=== PATIENT | male | born 1990 | race Caucasian/White ===

== ENCOUNTER 2018-07-18 02:05 | Emergency (ER) | payer BC ==
[2018-07-18] MEDS ORDERED: Ibuprofen 600 MG Tab PO ONE (02:23)
--- NOTE | 2018-07-18 02:29 | EDM.PDOC ---
ED HPI GENERAL MEDICAL PROBLEM - General Chief Complaint: Upper Extremity Injury/Pain Stated Complaint: RASH,FEVER Time Seen by Provider: 07/18/18 02:10 Source of Information: Reports: Patient, Family History Limitations: Reports: No Limitations - History of Present Illness INITIAL COMMENTS - FREE TEXT/NARRATIVE: Ramez comes into [facility] ED with a 24 hr hx of fevers, malaise, and more recent sore throat. There is no cough, nasal congestion, muscles aches or headache. In addition, he struck his L elbow last week and developed a swelling overlying the olecranon that has since subsided but discolored the proximal forearm, significance unknown. left forearm Pain Score (Numeric/FACES): 5 - Related Data Allergies Allergy/AdvReac Type Severity Reaction Status Date / Time No Known Allergies Allergy Verified 08/14/13 22:31 Home Meds: Home Meds NK [No Known Home Meds] 08/14/13 [History] Past Medical History - Past Health History Medical/Surgical History: Denies Medical/Surgical History Social & Family History - Tobacco Use Smoking Status *Q: Current Every Day Smoker Years of Tobacco use: 8 Packs/Tins Daily: 1 - Recreational Drug Use Recreational Drug Use: No Review of Systems - Review of Systems Review Of Systems: See Below Constitutional: Reports: Fever Eyes: Reports: No Symptoms Ears: Reports: No Symptoms Nose: Reports: No Symptoms Mouth/Throat: Reports: Other (sore throat) Respiratory: Reports: No Symptoms Cardiovascular: Reports: No Symptoms GI/Abdominal: Reports: No Symptoms Genitourinary: Reports: No Symptoms Musculoskeletal: Reports: No Symptoms Skin: Reports: Bruising (L forearm) Neurological: Reports: No Symptoms Psychiatric: Reports: No Symptoms ED EXAM, GENERAL - Physical Exam Exam: See Below Exam Limited By: No Limitations General Appearance: Alert, WD/WN, No Apparent Distress Eye Exam: Bilateral Eye: EOMI, Normal Inspection, PERRL Ears: Normal External Exam Nose: Normal Inspection Throat/Mouth: Normal Inspection, Normal Lips, Normal Teeth, Normal Gums, Normal Oropharynx, Normal Voice Head: Normocephalic Neck: Normal Inspection, Supple, Non-Tender, Full Range of Motion Respiratory/Chest: Lungs Clear, Normal Breath Sounds, Chest Non-Tender Cardiovascular: No Murmur GI/Abdominal: Normal Bowel Sounds, Soft, Non-Tender, No Organomegaly, No Distention, No Mass Back Exam: Normal Inspection Extremities: Normal Range of Motion, Non-Tender, Other (fading ecchymoses of proximal L forearm) Neurological: Alert, Oriented, CN II-XII Intact, Normal Cognition, No Motor/ Sensory Deficits Psychiatric: Normal Affect, Normal Mood Skin Exam: Warm, Dry, Intact, Ecchymosis Lymphatic: No Adenopathy Course - Vital Signs Text/Narrative:: Following assessment at the ED, I administered Ibuprofen 600 mg po and obained a CBC which was baseline. A viral illness is suspected. Last Recorded V/S: Last Vital Signs Temp 38.9 C H 07/18/18 02:29 Pulse 79 07/18/18 02:05 Resp 17 07/18/18 02:05 BP 115/68 07/18/18 02:05 Pulse Ox 96 07/18/18 02:05 - Orders/Labs/Meds Labs: Laboratory Tests 07/18/18 Range/Units 02:40 WBC 11.3 (4.5-12.0) X10-3/uL RBC 4.71 (4.30-5.75) x10(6)uL Hgb 14.6 (11.5-15.5) g/dL Hct 42.8 (30.0-51.3) % MCV 91.0 (80-96) fL MCH 30.9 (27.7-33.6) pg MCHC 34.0 (32.2-35.4) g/dL RDW 12.3 (11.5-15.5) % Plt Count 265 (125-369) X10(3)uL MPV 8.9 (7.4-10.4) fL Neut % (Auto) 87.2 H (46-82) % Lymph % (Auto) 3.9 L (13-37) % Eaton % (Auto) 8.5 (4-12) % Eos % (Auto) 0 L (1.0-5.0) % Baso % (Auto) 0 (0-2) % Neut # (Auto) 9.9 H (1.6-8.3) # Lymph # (Auto) 0.4 L (0.6-5.0) # Eaton # (Auto) 1.0 (0.0-1.3) # Eos # (Auto) 0.0 (0.0-0.8) # Baso # (Auto) 0.0 (0.0-0.2) # Meds: Medications Discontinued Medications Generic Name Dose Route Start Last Admin Trade Name Kevin PRN Reason Stop Dose Admin Ibuprofen 600 mg 07/18/18 02:23 07/18/18 02:29 Motrin PO 07/18/18 02:24 600 mg ONETIME ONE Administration Departure - Departure Time of Disposition: 03:20 Disposition: Home, Self-Care 01 Condition: Fair Clinical Impression: Viral upper respiratory illness - Discharge Information *PRESCRIPTION DRUG MONITORING PROGRAM REVIEWED*: Not Applicable *COPY OF PRESCRIPTION DRUG MONITORING REPORT IN PATIENT SARA: Not Applicable Referrals: PCP,None [Primary Care Provider] - Forms: ED Department Discharge - Problem List & Annotations (1) Viral upper respiratory illness SNOMED Code(s): 314412050 Code(s): J06.9 - ACUTE UPPER RESPIRATORY INFECTION, UNSPECIFIED Status: Acute Current Visit: Yes Annotation/Comment:: Routine fever therapy, hydration, and rest. - Problem List Review Problem List Initiated/Reviewed/Updated: Yes - Assessment/Plan Plan: Follow up with PCP if needed.
[2018-07-18 03:34] VITALS: BP 109/59
== END 2018-07-18 03:29 | disposition home or self-care (01) ==
LOC: FB.ED 02:05
DX: J06.9 Acute upper respiratory infection, unspecified (principal); F17.210 Nicotine dependence, cigarettes, uncomplicated
CPT/HCPCS: 36415; 85025; 99283; A9270